=== PATIENT | male | born 1970 | race Caucasian/White ===

== ENCOUNTER 2024-06-01 02:29 | Inpatient (IN) | payer OTHER, SELFPAY ==
[2024-05-31 23:31] VITALS: BP 176/105
[2024-05-31 23:42] VITALS: BP 171/102
[2024-05-31 23:44] VITALS: BMI 39.5
[2024-06-01] VITALS (15 sets, daily range): BP systolic 119–161; BP diastolic 73–144; BMI 38.3
[2024-06-01 00:01] LABS: % Basophils 0.7 % (0-2); % Eosinophils 2.2 % (0-6); % Immature Granulocytes 0.3 % (0-0.5); % Lymphocytes 36.6 % (20.5-51.1); % Monocytes 12.3 % (1.7-9.3); % Neutrophils 47.9 % (42.2-75.2); Absolute Basophils 0.1 10^3/uL (0-0.2); Absolute Eosinophils 0.3 10^3/uL (0-0.7); Absolute Lymphocytes 4.3 10^3/uL (1.2-3.4); Absolute Monocytes 1.4 10^3/uL (0.1-0.6); Absolute Neutrophils 5.6 10^3/uL (1.4-6.5); Hematocrit 42.2 % (39.0-52.0); Hemoglobin 15.4 g/dL (13.0-18.0); Mean Corp Hgb Conc. 36.5 g/dL (33.0-37.0); Mean Corpuscular Hgb 29.3 pg (27.0-31.0); Mean Corpuscular Volume 80.4 fL (80.0-94.0); Mean Platelet Volume 9.7 fL (7.4-10.4); Nucleated Red Blood Cells % 0 % (-); Platelet Count 256 10^3/uL (130-400); Red Blood Cell Count 5.25 10^6/uL (4.70-6.10); Red Cell Dist. Width 12.6 % (11.5-14.5); White Blood Cell Count 11.7 10^3/uL (4.8-10.8)
[2024-06-01] MEDS: NITROSTAT (SUBLINGUAL) 0.4 MG SL (00:10)
[2024-06-01] MEDS: LOW STRENGTH ASPIRIN 324 MG PO (00:10)
[2024-06-01] MEDS: LOPRESSOR 5 MG IV (00:11)
[2024-06-01 00:13] LABS: APTT 27.6 Sec (23.4-35.0)
[2024-06-01 00:18] LABS: ALT (SGPT) 31 U/L (0-50); AST (SGOT) 82 U/L (17-59); Albumin 4.2 g/dl (3.5-5.0); Alkaline Phosphatase 48 U/L (38-126); Blood Urea Nitrogen 21 mg/dl (9-20); Calcium 9.5 mg/dl (8.4-10.2); Carbon Dioxide 26 mmol/L (22-30); Chloride 100 mmol/L (98-107); Estimated Creatinine Clearance > 125 ml/min; Glucose 280 mg/dl (70-99); Potassium 4.5 mmol/L (3.5-5.1); Sodium 139 mmol/L (135-145); Total Bilirubin 0.3 mg/dl (0.2-1.3); Total Protein 6.6 g/dl (6.3-8.2); eGFR > 60.00
--- NOTE | 2024-06-01 00:38 | EDRN ---
Patient was chest pain free after nitro, informed Dr. Ram, repeat EKG completed and gave to Dr. Ram
--- NOTE | 2024-06-01 00:44 | ED.GENMED ---
History of Present Illness
General
Chief Complaint: Chest Pain
Source: patient
Exam Limitations: none
Time Seen by Provider: 05/31/24 23:55
Nursing documentation reviewed up to this point in time: agreed with except (No prior history of NV. Patient does not have prior history of CAD, he has prior history of pericarditis as a teenager after episode of mononucleosis.)
History of Present Illness
History of Present Illness:
This is a 53-year-old obese gentleman who has history of [id number]-didexexzo diabetes, hypertension, anxiety as well as remote history of pericarditis as a teenager after suffering an episode of mononucleosis. He had been maintained on
medications for diabetes and hypertension but with significant weight loss was able to discontinue these medications several years ago, pre-COVID. He admits to moderate weight gain since then and admits to neglecting follow-up with his PCP since
prior to COVID-19.
He complains of several day history of intermittent chest pain, more persistent over the past day or 2 and worse tonight after lying down to bed associated with mild shortness of breath which prompted ED visit. No definitive aggravating nor
relieving factors. He denies palpitations, denies dizziness nor lightheadedness, denies diaphoresis, denies nausea nor vomiting. He does admit to moderate ongoing stress and thought that his chest pain was related to his anxiety as current chest
pain feels very similar to the chest pain he experienced with previous episodes of anxiety.
No recent travel, he denies leg pain or swelling.
Lifelong non-smoker. Rare alcohol use. Denies drug use.
He takes no medicines on a daily basis.
Family history of CAD in his father having suffered several MIs and in his 60s.
Patient states chest pain substernal, left parasternal region, nonradiating is currently mild perhaps 2 out of 10.
Past History
Past History
ED Past Medical History: HTN, NIDDM and Other (Obesity; history of pericarditis as a teenager after mononucleosis)
ED Past Surgical History: Orthopedic
Social History
Tobacco: Non-smoker
Alcohol: None
Drug: None
Personal:
Living: with family
Employment: Employed
Family History
Family History: CAD (Father had several MIs and in his 60s)
Phy Exam
Physical Exam
Physical Exam:
GENERAL: 53-year-old obese gentleman appears his stated age, awake and alert, pleasant, appears in no acute distress. is accompanying.
EYE: anicteric
NECK: Supple, nontender, no meningismus, no significant adenopathy.
ENT: oral mucosa is moist. No rhinorrhea.
CARDIAC: Regular rate and rhythm at 98. no murmur.
LUNGS: Clear breath sounds bilaterally, no acute respiratory distress, no wheezes/rales/rhonchi
ABDOMEN: Rotund, soft, nondistended, without focal tenderness, no r/g, no cvat. normoactive BS.
NEUROLOGICAL: Alert and oriented x3, no focal neuro deficits.
SKIN: Warm and dry, normal color, skin intact. No rash.
MUSCULOSKELETAL: No C/C/E. peripheral pulses are full and equal b/l. No palpable tenderness.
PSYCH: Normal and appropriate interaction.
Scores
Heart Score for Chest Pain Patients
STEMI patient?: No
History: Highly Suspicious
ECG: Significant ST-Depression
Age: >45 - <65 years
Risk Factors: >/= 3 Risk Factors or History of CAD
Troponin: >/= 3 x Normal Limit
Heart Score for Chest Pain Patients: 9
Heart Score Risk: 72.7 % MACE over next 6 weeks
Course
Orders/Labs/Results
Orders:
Orders
05/31/24 23:31
Electrocardiogram (*1) Urgent
Reason for Study: Chest Pain
EKG- Treatment ONCE
05/31/24 23:43
Complete Blood Count/With Diff Urgent
Comprehensive Metabolic Panel Urgent
NT-proBNP Urgent
Comment: ADD ON
Troponin I Urgent
05/31/24 23:55
PTT Urgent
06/01/24 00:05
Aspirin Chewable [Low Strength Aspirin] 324 mg PO NOW STA
Metoprolol [Lopressor] 5 mg IV NOW STA
Nitroglycerin Sublingual [Nitrostat (Sublingual)] 0.4 mg SL [id number] PRN
CR Chest Portable - 1 View Urgent
Comment:
Reason For Exam: CP
Reason Study Needs to be Portable: Patient Unstable
06/01/24 00:18
Electrocardiogram (*1) Urgent
Reason for Study: Chest Pain
EKG- Treatment ONCE
06/01/24 00:45
Add On- LAB Urgent
Tests Added?: BNP
Heparin 4,000 units IV NOW STA
Nursing to Place Non Medication Order As Directed
Physician Order: PTT 6 hours after initial start of Heparin infusion
Above order entered?: Yes
06/01/24 00:54
Nitroglycerin 100 mg/250 ml [Nitroglycerin Premix] 100 mg in 250 ml IV NOW
Initial dose in mcg/min, then titrate:: 5
Titrate to keep:: Chest Pain Free
Titrate by mcg/min:: 5 mcg/min, may increase by 10 mcg/min if dose > 20 mcg/min
Frequency of titrations (minutes):: every 3-5 minutes
Maximum dose in mcg/min:: 200
Begin to taper infusion when:: Remained at goal for 2hrs
Taper by mcg/min:: 5 mcg/min
Frequency of taper (minutes) if patient maintains goal:: 30
Taper to off?: Yes
If infusion off & no longer maintaining goal:: Contact Provider
06/01/24 01:15
Heparin 81549 Units/250 ml 25,000 units in 250 ml IV PER PROTOCOL
Weight to be used for heparin protocol in kilograms (kg):: 132
Protocol:: Cardiac Tx/Acute Coronary
PTT Goal Range to be used:: PTT 73 to 111 seconds
Order type:: Initial
INITIAL Infusion Dose (UNITS/KG/hr) & then follow protocol:: 12 units/kg/hr
Infusion Dose in UNITS/hr & then follow protocol (UNITS/hr):: 1,000
INFUSION RATE in mL/hr & then follow protocol (mL/hr):: 10
PTT less than or equal to 64 seconds:: Increase rate by 200 units/hr (+ 2 mL/hr)
PTT 64.1 to 72.9 seconds:: Increase rate by 100 units/hr (+ 1 mL/hr)
PTT 73 to 111 seconds:: Target Range. No change in rate.
PTT 111.1 to 130.9 seconds:: Decrease rate by 100 units/hr (- 1 mL/hr)
PTT 131 to 199.9 seconds:: HOLD for 1 hr. Then decrease rate by 200 units/hr (- 2 mL/hr)
PTT greater than or equal to 200 seconds:: HOLD for 2 hrs & Notify Provider. Then decrease by 200 units/hr (-
2 mL/hr)
Lab follow-up:: Each change, PTT q6h until 2 consecutive are therapeutic. Then PTT
daily.
06/01/24 01:36
Admit/Transfer Patient As Directed
Co-Sign Provider:
Level of Care: Inpatient admission
Assign to:: IVU
Physician / Group: [facility]
Diagnosis: ACS
Reason for Hospitalization: ACS
Expected length of stay greater than two midnights?: Yes
ELOS- Estimated Length of Stay in days: 3
I certify the patient meets the requirements for IP care: Yes
PRN Pain Medication Management As Directed
May give lesser potent ordered pain med per pt: Yes
preference::
Protocol:: Medication orders for pain may be administered in a
manner that supports deferring to patient preference
when the pt is:
- Requesting an ordered lesser potent pain medication.
Least to most potent pain medications are defined
as: acetaminophen < NSAID < tramadol < opioids
(morphine, oxycodone, hydromorphone).
- Requesting a lesser dose of the same medication IF
ORDERED.
- Requesting a less intrusive route of administration
if both routes are prescribed by the provider (PO <
IV).
06/01/24 01:37
Code Status As Directed
Resuscitation Status: Full Code
06/01/24 03:21
Acetaminophen [Tylenol] 650 mg PO Q4HPRN PRN
Dextrose 50%-Water [Dextrose 50% Syringe] 12.5 grams IV [id number] PRN
Glucagon [GlucaGen] 1 mg IM PRN PRN
Morphine Sulfate 2 mg IV Q4HPRN PRN
Nitroglycerin 100 mg/250 ml [Nitroglycerin Premix] 100 mg in 250 ml IV PER PROTOCOL
Currently infusing. Continue current dose and titrate:: Yes
Titrate to keep:: Chest Pain Free
Titrate by mcg/min:: 5 mcg/min, may increase by 10 mcg/min if dose > 20 mcg/min
Frequency of titrations (minutes):: every 3-5 minutes
Maximum dose in mcg/min:: 200
Begin to taper infusion when:: Remained at goal for 2hrs
Taper by mcg/min:: 5 mcg/min
Frequency of taper (minutes) if patient maintains goal:: 30
Taper to off?: Yes
If infusion off & no longer maintaining goal:: Contact Provider
06/01/24 03:21
CARDIOLOGY CONSULT Routine
Consulting Provider: Joao Carrillo
Was physician already notified: Yes
Reason for consult: ACS / STEMI
Heparin Protocol- PTT Orders As Directed
PTT per Heparin protocol: -Obtain CBC and baseline PTT - if not already collected.
-Obtain PTT 6 hours from start of infusion. Then, every 6 hours until 2 consecutive
PTT's are therapeutic. Then, PTT Daily.
-With each rate change, obtain PTT every 6 hours until 2 consecutive PTT's are
therapeutic. Then, PTT Daily.
Activity As Directed
Activity Level: Bedrest
Bedside Glucose Monitoring As Directed
Frequency: AC&HS
Additional Instructions:: Change to q6h if pt on TPN, tube feeding or not eating
EKG with chest pain [ECG as needed] As Directed
ECG as needed for:: Chest Pain
I/O [Intake/ Output] As Directed
Frequency: Per unit guidelines
Notify MD As Directed
Notify physician if: PTT is greater than or equal to 200.
Vital Signs As Directed
Frequency: Per unit guidelines
Oxygen Therapy [O2 Therapy] [RESP] Routine
Titrate/Wean O2 to maintain O2 sat greater than (%): 94
06/01/24 06:00
EKG [Electrocardiogram (*1)] IN AM
Reason for Study: Chest Pain
NPO
Allow oral meds: Yes
Allow clear liquids: Sips of Clears
06/01/24 07:29
Basic Metabolic Panel IN AM
Cardiovascular Evaluation IN AM
Glycohemoglobin (HgbA1c) IN AM
PTT Urgent
Troponin I Q6H
06/01/24 07:30
Insulin Aspart Corrective Low [Novolog Flexpen-Low Resistance] See Protocol SC AC
06/01/24 08:00
Aspirin Chewable [Low Strength Aspirin] 81 mg PO DAILY
06/01/24 18:00
Atorvastatin [Lipitor] 40 mg PO QPM
06/03/24 06:00
Complete Blood Count/No Diff Q2D
Comment: notify provider: Platelet count < 130,000 or decrease by 50% from baseline
06/05/24 06:00
Complete Blood Count/No Diff Q2D
Comment: notify provider: Platelet count < 130,000 or decrease by 50% from baseline
06/07/24 06:00
Complete Blood Count/No Diff Q2D
Comment: notify provider: Platelet count < 130,000 or decrease by 50% from baseline
06/09/24 06:00
Complete Blood Count/No Diff Q2D
Comment: notify provider: Platelet count < 130,000 or decrease by 50% from baseline
06/11/24 06:00
Complete Blood Count/No Diff Q2D
Comment: notify provider: Platelet count < 130,000 or decrease by 50% from baseline
06/13/24 06:00
Complete Blood Count/No Diff Q2D
Comment: notify provider: Platelet count < 130,000 or decrease by 50% from baseline
06/15/24 06:00
Complete Blood Count/No Diff Q2D
Comment: notify provider: Platelet count < 130,000 or decrease by 50% from baseline
06/17/24 06:00
Complete Blood Count/No Diff Q2D
Comment: notify provider: Platelet count < 130,000 or decrease by 50% from baseline
Abnormal Lab Results
05/31/24
23:43
WBC 11.7 H 10^3/uL
(4.8-10.8)
Absolute Lymphs (auto) 4.3 H 10^3/uL
(1.2-3.4)
Absolute Monos (auto) 1.4 H 10^3/uL
(0.1-0.6)
Monocytes % 12.3 H %
(1.7-9.3)
BUN 21 H mg/dl
(9-20)
Glucose 280 H mg/dl
(70-99)
AST 82 H U/L
(17-59)
Troponin I 7.580 H* ng/ml
05/31/24 23:43
05/31/24 23:43
Vital Signs
Initial and Last Documented VS:
Initial Vital Signs
Temp Pulse Resp BP Pulse Ox
98.2 F 102 20 176/105 99
05/31/24 23:31 05/31/24 23:31 05/31/24 23:31 05/31/24 23:31 05/31/24 23:31
Last Documented Vital Signs
Temp Pulse Resp BP Pulse Ox
98.6 F 92 20 127/87 97
06/01/24 06:57 06/01/24 07:05 06/01/24 06:57 06/01/24 07:05 06/01/24 07:05
MDM/Problems Addressed
Differential Diagnosis Includes:
Significant concern for acute coronary syndrome, other consideration is recurrent pericarditis, GERD, anxiety, PE.
EKG shows normal sinus rhythm, minimal ST segment elevation 1 and aVL with mild reciprocal changes 3 and aVF concerning for non-STEMI.
EKG changes are all new compared to previous EKG 2007.
Patient certainly has multiple risk factors for CAD, hypertension, diabetes, family history, obesity.
After 324 mg chewable aspirin and 1 sublingual nitroglycerin he is now chest pain-free and comfortable.
Moderate hypertension noted initially 160/90 with borderline tachycardia at this patient has been given an IV dose of Lopressor 5 mg as well.
Labs are pending. Will repeat EKG and plan for urgent cardiology consult.
Chronic conditions affecting care: DM, HTN and Other (Obesity)
*Radiology
Radiology exam reviewed: preliminary read by ED provider (Chest x-ray shows mild interstitial fullness concerning for mild CHF.)
*Pulse Oximetry
Patient hypoxic: no
*EKG
Interpreted by ED Provider?: Yes
Interpretation: abnormal
Comparison EKG: changes noted
Rate: normal
Rhythm: sinus
[place]: normal axis
Interval: normal interval
QRS Pattern: poor R-wave progression
Ischemia: ST elevation (Mild ST segment elevation 1 and aVL with reciprocal changes 3 and aVF concerning for subacute STEMI as symptoms have been ongoing for several days)
*[employer] Interpretation
Rate: normal
Interpretation: normal
Rhythm: sinus
*Critical Care Note
Total Time (30-74mins, 75-104mins- exclusive of procedures): 40
comment:
Critical care statement: A total of 40 minutes of critical care time was provided for this patient. This includes management of unstable vital signs, evaluation of the patient at bedside, reviewing the patient's pertinent medical records, discussion
with consultants, review of old EKGs and review of pertinent medical records. This time with separate from time utilized to perform the aforementioned documented procedures
Update Note
Update Note:
Repeat EKG shows marked improvement in EKG changes noted on initial EKG.
Case discussed with cardiology, Dr. Carrillo. EKGs reviewed.
Recommend initiation of nitro drip, IV heparin drip and request patient be admitted to hospitalist service.
Chest x-ray shows mild increased interstitial fullness concerning for an element of CHF. Patient denies shortness of breath, normal pulse ox and lungs are clear. Will check BNP.
ED Attending Note
-
Portions of this chart may have been created with voice recognition software.� Occasional wrong word or��sound alike� substitutions may have occurred due to the inherent limitations of voice recognition software.
Discharge Plan
Departure
Patient Disposition: Admit
Date of Disposition: 06/01/24
Time of Disposition: 01:00
Admit to doctor: [facility]
Presentation/result/management discussed w/ accepting MD/DO: Hospitalist
Condition: Serious
Discharge Problem:
ACS (acute coronary syndrome), Subacute STEMI
Interventions
Interventions:
*Risk Screen - Suicide Last Done: 05/31/24 23:31
*General Assessment Last Done: 05/31/24 23:44
*Neglect/Abuse Screening Last Done: 05/31/24 23:44
ED- Fall Risk Assessment Last Done: 06/01/24 00:02
*ED COVID-19 Vaccine History Last Done: 05/31/24 23:44
*Nursing Disposition Last Done: 06/01/24 03:14
ED- Cardiac Assessment Last Done: 06/01/24 00:02
Discharge Date and Time
Discharge Date/Time: 06/01/24 03:20
--- NOTE | 2024-06-01 00:55 | EDRN ---
Patient updated on labs and plan for admission, Dr. Ram at bedside talking with patient now
[2024-06-01 01:10] LABS: NT-proBNP 1180 pg/ml
[2024-06-01] MEDS: HEPARIN 4000 UNITS IV (01:22)
[2024-06-01] MEDS: HEPARIN 25000 UNITS/250 ML IV ×2 (01:23→21:19)
[2024-06-01] MEDS: NITROGLYCERIN PREMIX 250 IV (01:25)
--- NOTE | 2024-06-01 01:28 | EDRN ---
Dr. Jacobsen at bedside working on admitting patient at this time, patient remains pain free
--- NOTE | 2024-06-01 01:39 | HPS.HSE ---
Family Physician
-
Family Physician: Viola Fuentes
Chief Complaint
-
Chest pain
History of Present Illness
Patient is a 53y M with PMH significant for DM-II and history of pericarditis who presents to ED complaining of chest pain. Patient states that he has been under a great deal of stress lately at work. He reports development of substernal chest
pain / tightness beginning on Sunday of this week. His symptoms have been intermittent over the past few days. He reports no radiation of the pain, diaphoresis, dyspnea, nausea, etc. He felt that his symptoms were 'anxiety attacks'. This
evening, patient had more intense chest tightness and noted associated shortness of breath. This prompted him to present to the ED for further evaluation.
On initial evaluation in the ED, EKG showed ST elevation in I, aVL and reciprocal changes in III and aVF. Patient was treated with NTG and his discomfort resolved. Repeat EKG appeared improved as well.
Patient is currently resting comfortably and denies any chest pain, dyspnea, etc.
Medical History
Past Medical History
Past Medical History: Reports Other
Additional Past Medical History:
DM-II
Obesity
Infectious Pericarditis ([place])
Past Surgical History: Reports Other
Additional Past Surgical History:
R Knee Arthroscopy
Social History
Tobacco: Non-smoker
Alcohol: Occasional (Rare)
Drug: None
Family History
Family History: Other (Father: [place]@60yo Sister: Breast / Ovarian CA)
Allergies / Home Medications
Allergies reflects when Allergies were last updated in [facility].
Home Medications with original date entered in [facility]
Allergy/Medication List:
Allergies
Allergy/AdvReac Type Severity Reaction Status Date / Time
No Known Allergies Allergy Unverified 05/31/24 23:40
Home Medications
No Meds [No Current Medications] 06/01/24
Review of Systems
-
History Source: Patient
A 12 point ROS was completed and negative except as noted: Yes
Constitutional: Denies Fever or Chills
EENT: Denies Sore Throat
Respiratory: Reports Trouble Breathing; Denies Cough
Cardiac: Reports Chest Pain; Denies Diaphoresis, Palpitations or Syncope
Abdomen/GI: Denies Abdominal Pain, Nausea, Vomiting or Diarrhea
: Denies Dysuria or Frequency
Musculoskeletal: Denies Joint Pain or Edema
Neurological: Denies Dizzy or Headache
Psych: Reports Anxiety; Denies Depression
Physical Exam
Vital Signs
Vital Signs
Temp Pulse Resp BP Pulse Ox
98.2 F 83 16 128/79 98
05/31/24 23:31 06/01/24 00:30 06/01/24 00:30 06/01/24 00:30 06/01/24 00:30
Physical Exam
General: Other (53y M in no acute distress.)
HEENT: Moist mucous membranes and PERRLA
Respiratory: Clear; No Wheezes, Rales or Rhonchi
Cardiac: S1/S2 and Regular Rhythm; No Murmur
GI: Soft, Non Tender, Non Distended and Normal Bowel Sounds
Musculoskeletal: No Clubbing, No Cyanosis and No Edema
Neuro: AO x 3
Laboratory Results
-
05/31/24 23:43
05/31/24 23:43
Laboratory Results
APTT 27.6 Sec (23.4-35.0) 05/31/24 23:55
Total Bilirubin 0.3 mg/dl (0.2-1.3) 05/31/24 23:43
AST 82 U/L (17-59) H 05/31/24 23:43
ALT 31 U/L (0-50) 05/31/24 23:43
Alkaline Phosphatase 48 U/L (38-126) 05/31/24 23:43
Troponin I 7.580 ng/ml H* 05/31/24 23:43
Impression/Plan
-
A/P: Patient is a 53y M with PMH significant for DM-II and pericarditis who presents to ED complaining of chest pain.
ACS
- Admit to IVU for further evaluation and treatment.
- Initial symptoms, EKG, troponin c/w STEMI in lateral leads. Pain and EKG changes responded to NTG.
- Currently pain-free and EKG improved from prior.
- Continue IV NTG infusion. IV Heparin infusion.
- ASA daily.
- Follow for any new / recurrent symptoms.
- Cardiology consultation and ischemic evaluation.
DM-II
- Patient previously on medications, but lost significant weight with lifestyle changes and was able to discontinue these.
- He admits that he has since regained a fair amount of weight and has not followed up with medical care.
- Glucose today is 280 on random labs.
- Follow glucose and cover with SSI as needed.
- Update A1C.
- Adjust meds prior to discharge for glycemic control.
Obesity due to excess calories
- Affects all aspects of care.
- Encourage healthy diet / increased exercise with goal of weight loss.
DVT Prophylaxis: On IV Heparin
Code Status: Full
--- NOTE | 2024-06-01 04:27 | PTCARENOTE ---
Pt admit to IVU ~0310. HR SR. Heparin infusing at 1000u/hr. Nitro infusing at 5mcg/min. Pt denies any CP. Pt's significant other at bedside. Oriented to hospital and unit. Pt belongings with pt. CAD booklet given to pt, reviewed with pt. Pt updated
on plan of care, pt verbalizes understanding.
[2024-06-01 07:08] LABS: Glucose - Point of Care 215 mg/dl (70-99)
[2024-06-01 07:50] LABS: APTT 37.9 Sec (23.4-35.0)
--- NOTE | 2024-06-01 07:51 | W.PN.HOSP.TC ---
Today's Communication/Plan
-
F/U cardiology recs
Assessment / Plan
Assessment / Plan
Mr. Isacc Ruiz is a 53 yo man with hx DM, pericarditis who presents to the ER with complaint of chest pain with initial EKG showing STEMI in lateral leads, resolved with nitro.
ACS
- Admitted to IVU for further evaluation and treatment.
- Initial symptoms, EKG, troponin c/w STEMI in lateral leads. Pain and EKG changes responded to NTG.
- Currently pain-free and EKG improved from prior.
- Continue IV NTG infusion. IV Heparin infusion.
- ASA daily.
- Cardiology consultation and ischemic evaluation.
DM-II
- Patient previously on medications, but lost significant weight with lifestyle changes and was able to discontinue these.
- He admits that he has since regained a fair amount of weight and has not followed up with medical care.
- Glucose today is 280 on random labs.
- Follow glucose and cover with SSI as needed.
- Update A1C.
- Adjust meds prior to discharge for glycemic control.- patient states he hasn't tolerated metformin in past
Obesity due to excess calories
- Affects all aspects of care.
- Encourage healthy diet / increased exercise with goal of weight loss.
DVT Prophylaxis: On IV Heparin
Code Status: Full
Anticipated Discharge: 24 - 48 hours
Subjective/Interval History
-
Date of Service: June 01, 2024
mild muscle soreness no significant chest discomfort currently and no shortness of breath
Objective Data
-
Labs:
Laboratory Results
05/31/24 05/31/24 06/01/24
23:43 23:55 07:29
WBC 11.7 H
Hgb 15.4
Hct 42.2
Plt Count 256
APTT 27.6 Pending
Sodium 139 Pending
Potassium 4.5 Pending
Chloride 100 Pending
Carbon Dioxide 26 Pending
BUN 21 H Pending
Creatinine 0.8 Pending
Glucose 280 H Pending
Calcium 9.5 Pending
Total Bilirubin 0.3
AST 82 H
ALT 31
Alkaline Phosphatase 48
Vital Signs:
Vital Signs
Temp Pulse Resp BP Pulse Ox
98.6 F 92 20 127/87 97
06/01/24 06:57 06/01/24 07:05 06/01/24 06:57 06/01/24 07:05 06/01/24 07:05
Review of Systems
-
History Source: Patient
All other systems: Reviewed and negative
Physical Exam
-
General: Well Developed and No Apparent Distress
HEENT: PERRLA
Respiratory: Clear to Auscultation; Negative Wheezes
Cardiac: Regular Rhythm and S1/S2
GI: Soft and Nontender
Musculoskeletal: No Edema
Skin: Warm and Dry; Negative Rash
Neuro: AO x 3
Psych: Calm
Data Reviewed
-
Diagnostic Radiology: Report Reviewed by me
Labs: Labs Reviewed by me
[2024-06-01] MEDS: LOW STRENGTH ASPIRIN 81 MG PO (07:54)
[2024-06-01 08:04] LABS: Blood Urea Nitrogen 16 mg/dl (9-20); Calcium 9.3 mg/dl (8.4-10.2); Carbon Dioxide 26 mmol/L (22-30); Chloride 104 mmol/L (98-107); Estimated Creatinine Clearance > 125 ml/min; Glucose 229 mg/dl (70-99); HDL Cholesterol 49 mg/dl; LDL Cholesterol, Calculated 120 mg/dl; Potassium 4.4 mmol/L (3.5-5.1); Sodium 140 mmol/L (135-145); Total Cholesterol 198 mg/dl (50-199); Triglyceride 149 mg/dl (10-149); Very Low Density Lipoprotein 29 mg/dl (0-30); eGFR > 60.00
--- NOTE | 2024-06-01 08:44 | PTCARENOTE ---
The patient is aaox3, vital signs are stable. NSR is noted on the monitor. He states that he is not having 'chest pain' but rather he 'it feels like a muscle strain in my left chest.' 'As if I just got done working out.' His heparin gtt is running
at 1000 units/hr and his nitro gtt is running at 5 mcg/min. Plan of care reviewed with the patient and expected upcoming tests and procedures.
[2024-06-01] MEDS: TOPROL XL 25 MG PO ×2 (09:29→20:34)
[2024-06-01] MEDS: BRILINTA 180 MG PO (09:31)
--- NOTE | 2024-06-01 09:57 | CON.CAR ---
Consultation
Consultation Request
Date/Time Consultation Requested: 06/01/24, 7am
Date/Time Consultation Performed: 06/01/24, 8am
Requesting Provider: Lory
Performing Provider: Lorena
Reason for Consultation: chest pain
Medical History
-
Chief Complaint: chest pain
History of Present Illness:
53 yo male with PMH of DM (not on meds), obesity, FH CAD presented to ED with chest pain. Chest pain started Wed intermittently. Still went to work throughout week. Then last night was worse, so presented to ED. Initially, there was concern for
lateral ST elevation, but these changes and the chest pain resolved with sublingual nitro.
He is now chest pain free.
Past Medical History
Past Medical History: NIDDM and Other (obesity, prior viral pericarditis)
Past Surgical History: Orthopedic
Social History
Tobacco: Non-Smoker
Family History
Family History: CAD (father)
Allergies / Home Medications
Allergy/AdvReac Type Severity Reaction Status Date / Time
No Known Allergies Allergy Unverified 05/31/24 23:40
�Medication �Instructions �Recorded �Confirmed �Type
No Meds [No Current Medications] 06/01/24 06/01/24 History
Review of Systems
-
History Source: Patient
All other systems: Negative unless noted
Cardiac: Chest Pain
Physical Exam
Vital Signs
Temp Pulse Resp BP Pulse Ox
98.6 F 92 20 127/87 97
06/01/24 06:57 06/01/24 07:05 06/01/24 06:57 06/01/24 07:05 06/01/24 07:05
Lab Results
05/31/24 23:43
06/01/24 07:29
Troponin I Cancelled 06/01/24 15:21
Mbe-R-Chdnxjagxxh Pept 1180 pg/ml 05/31/24 23:43
Physical Exam
General: Well Developed and Well Nourished
HEENT: Anicteric
Respiratory: Clear and Non Labored Respirations
Cardiac: S1/S2 (normal), Regular Rhythm, Murmur (none) and JVD (none)
Musculoskeletal: No Clubbing, No Cyanosis and No Edema
Skin: Warm and Dry
Neuro: AO x 3
Psych: Calm
Impression / Plan
-
53 yo male with PMH of DM (not on meds), obesity, FH CAD presented to ED with chest pain. Chest pain started Wed intermittently. Still went to work throughout week. Then last night was worse, so presented to ED. Initially, there was concern for
lateral ST elevation, but these changes and the chest pain resolved with sublingual nitro.
#ACS
-as long as remains chest pain free, will proceed to cath and echo in AM
-ASA, brilinta, heparin drip, nitro drip, beta mckenna, statin
# Elevated LDL
-new start atorvastatin 40mg
# h/o DM
-he reports he was able to come of off meds with weight loss
-A1c sent
Data Reviewed
-
EKG: Tracing Personally Visualized and interpreted (SR, initial lateral ST elevation, then resolved)
Labs: Labs Reviewed by me
[2024-06-01 10:24] LABS: Glucose - Point of Care 207 mg/dl (70-99)
[2024-06-01] MEDS: NOVOLOG FLEXPEN-LOW RESISTANCE 2 UNITS SC ×2 (10:24→17:26)
[2024-06-01] MEDS: TYLENOL 650 MG PO ×2 (10:31→15:09)
[2024-06-01] MEDS: OCEAN, SALINE MIST 1 SPRAYS NASAL (12:23)
[2024-06-01 12:58] LABS: Glycohemoglobin (HgbA1c) 7.7 % (4.0-5.6)
[2024-06-01 13:06] LABS: Glucose - Point of Care 247 mg/dl (70-99)
[2024-06-01] MEDS: NOVOLOG FLEXPEN-LOW RESISTANCE 3 UNITS SC (13:06)
[2024-06-01 14:17] LABS: APTT 37.9 Sec (23.4-35.0)
[2024-06-01 17:14] LABS: Glucose - Point of Care 206 mg/dl (70-99)
[2024-06-01] MEDS: LIPITOR 40 MG PO (17:27)
[2024-06-01 22:30] LABS: Glucose - Point of Care 211 mg/dl (70-99)
[2024-06-02] VITALS (12 sets, daily range): BP systolic 99–125; BP diastolic 70–83; BMI 36.9
--- NOTE | 2024-06-02 02:38 | PTCARENOTE ---
Pt received start of shift, HR SR. Heparin currently infusing at 1600u/hr. Nitro infusing at 5 mcg/min. Reinforced CAD teaching w/ pt and updated pt on plan of care. Pt states understanding. Pt denies any CP/chest pressure/chest tightness or SOB.
Informed to notify RN if any changes, call hermosillo within reach.
[2024-06-02] MEDS: TYLENOL 650 MG PO (03:08)
--- NOTE | 2024-06-02 03:19 | PTCARENOTE ---
Pt w/ mild GUARDADO 4/10 pain. PRN tylenol administered - see MAR
[2024-06-02 03:28] LABS: Hematocrit 42.1 % (39.0-52.0); Hemoglobin 15.2 g/dL (13.0-18.0); Mean Corp Hgb Conc. 36.1 g/dL (33.0-37.0); Mean Corpuscular Hgb 30.2 pg (27.0-31.0); Mean Corpuscular Volume 83.5 fL (80.0-94.0); Mean Platelet Volume 9.6 fL (7.4-10.4); Platelet Count 237 10^3/uL (130-400); Red Blood Cell Count 5.04 10^6/uL (4.70-6.10); Red Cell Dist. Width 12.3 % (11.5-14.5); White Blood Cell Count 16.1 10^3/uL (4.8-10.8)
[2024-06-02 03:52] LABS: Blood Urea Nitrogen 12 mg/dl (9-20); Calcium 9.6 mg/dl (8.4-10.2); Carbon Dioxide 31 mmol/L (22-30); Chloride 99 mmol/L (98-107); Estimated Creatinine Clearance > 125 ml/min; Glucose 229 mg/dl (70-99); Magnesium 1.8 mg/dl (1.6-2.3); Potassium 4.4 mmol/L (3.5-5.1); Sodium 138 mmol/L (135-145); eGFR > 60.00
[2024-06-02] MEDS: BRILINTA 90 MG PO ×2 (08:06→20:01)
[2024-06-02] MEDS: TOPROL XL 25 MG PO ×2 (08:07→20:00)
[2024-06-02] MEDS: LOW STRENGTH ASPIRIN 81 MG PO (08:07)
[2024-06-02 08:25] LABS: Glucose - Point of Care 209 mg/dl (70-99)
[2024-06-02] MEDS: NOVOLOG FLEXPEN-LOW RESISTANCE 2 UNITS SC (08:28)
--- NOTE | 2024-06-02 09:44 | ITS.CL.PN ---
Residential [facility] - Procedure Note
Procedure
Procedure Note:
CARDIAC CATHETERIZATION REPORT
Date of Procedure: 06/02/2024
Referring: Dr. Joao Carrillo
INDICATION: acute coronary syndrome, myocardial infarction
PROCEDURE:
1. Left heart catheterization
2. Coronary angiography
ACCESS:
6 Jamaican right radial artery
CATHETERS:
1. 6 Jamaican JR4
2. 6 Jamaican JL3.5
3. 6 Jamaican JL4 (best fit)
HEMODYNAMIC DATA
LV 109/15 (EDP 24) mmHg
AO 115/80 (mean 95) mmHg
CORONARY ANGIOGRAPHY
Dominance: right
LM: large, normal
LAD: gives rise to a large D1 and large S1 before being totally occluded in the mid-vessel. There are faint R-R and L-R collaterals supplying the mid-distal vessel.
LCx: moderate caliber vessel giving rise to a small OM1, moderate-caliber OM2, and small OM3. There is diffuse mild disease in OM1 and OM2 and diffuse moderate to severe disease in OM3.
RCA: large vessel giving rise to a medium caliber RPDA and large RPL branch. There is diffuse mild disease in the RCA. The PDA has an ostial 80% stenosis and serial moderate stenoses distally. The RPLV has a 70% stenosis in the mid-vessel and
diffuse mild disease.
Closure Device: TR band
Radiation (mGy): 619.68
DAP (cm2.Gy): 36.61
Fluoroscopy time (minutes): 4.0
CONCLUSIONS
1. Two vessel obstructive coronary artery disease in a right dominant system. The infarct related artery is the mid-LAD which is totally occluded with developing collaterals. Given that the patient's symptoms started at least 5 days ago and have now
completely resolved and troponin peak was only 14, also suggesting chronicity, he is unlikely to experience myocardial salvage from PCI and thus revascularization was deferred.
2. Elevated LV filling pressure without aortic stenosis.
RECOMMENDATIONS:
1. Expectant management after cardiac catheterization via right radial approach.
2. Limited weight bearing on the right wrist for one week.
3. Echocardiogram with appropriate GDMT pending LVEF.
4. Continue beta mckenna for goal HR 60.
4. DAPT with ASA/Ticagrelor for at least 1 year given ACS presentation and factors for high bleeding risk.
5. High intensity statin with goal LDL<55. Check Lp(a).
6. Cardiac rehab.
7. Should patient develop ischemic symptoms, revascularization should be considered with discussion regarding surgical revascularization given prox-LAD involvement in a young diabetic.
Copy to: Dr. Viola Fuentes (PCP)
Signed: Srinivas Zimmerman MD, PhD
--- NOTE | 2024-06-02 09:45 | W.PN.HOSP.TC ---
Today's Communication/Plan
-
Anti-ischemic regimen.
Assessment / Plan
Assessment / Plan
Physical exam:
General: Well Developed, Well Nourished and No Apparent Distress
HEENT: Normocephalic, Atraumatic and Moist Mucous Membranes
Respiratory: Clear to Auscultation; Negative Wheezes, Rales or Rhonchi
Cardiac: Regular Rhythm and S1/S2
GI: Soft, Nontender and Nondistended
Musculoskeletal: No Clubbing, No Cyanosis and No Edema
Neuro: Awake, Alert and Oriented
Psych: Calm
A/P:
ACS--> NSTEMI
-Plan as below:
-Dual antiplatelet therapy, beta-blockers, high intensity statins
- Cardiology consultation and ischemic evaluation.
-Cardiac cath today revealed obstructive CAD but not benefiting from intervention. Medical management indicated but if ischemic symptoms ongoing consideration for surgical revascularization.
DM-II
- Patient previously on medications, but lost significant weight with lifestyle changes and was able to discontinue these.
- He admits that he has since regained a fair amount of weight and has not followed up with medical care.
- Follow glucose and cover with SSI as needed.
- Update A1C. 7.7
- Adjust meds prior to discharge for glycemic control.- patient states he hasn't tolerated metformin in past
Obesity due to excess calories
- Affects all aspects of care.
- Encourage healthy diet / increased exercise with goal of weight loss.
DVT Prophylaxis: Switch heparin drip to SCD and later on Lovenox if no surgery
Code Status: Full
Total time spent on today's encounter was 52 minutes which included time spent in counseling the patient/family regarding diagnosis and treatment plan as listed above, goals of care, and symptom management. Case was discussed with nursing staff,
specialists, and care coordinators/case management. All labs and imaging personally reviewed by me. Remainder the time spent in detailed review of previous records, lab data, imaging, and other medical provider documentation.
Anticipated Discharge: 24 - 48 hours
Subjective/Interval History
-
Date of Service: June 02, 2024
Patient denies chest pain or shortness of breath today.
Objective Data
-
Labs:
Laboratory Results
06/02/24 06/02/24
03:15 09:50
WBC 16.1 H
Hgb 15.2
Hct 42.1
Plt Count 237
APTT 54.0 H Pending
Sodium 138
Potassium 4.4
Chloride 99
Carbon Dioxide 31 H
BUN 12
Creatinine 0.7
Glucose 229 H
Calcium 9.6
Vital Signs:
Vital Signs
Temp Pulse Resp BP Pulse Ox
99.8 F 95 16 119/77 97
06/02/24 03:07 06/02/24 03:00 06/02/24 03:07 06/01/24 22:30 06/02/24 03:07
I&O
06/01/24 06/02/24 06/03/24
06:59 06:59 06:59
Intake Total 480 / 480
Balance 480 / 480
--- NOTE | 2024-06-02 11:43 | CM ---
Pricing on Brilinta through the patient's prescription plan is $437, the patient has a hospital and prescription deductible for $3200. The patient does have commercial insurance, so he qualifies for the copay card. I will place a free 30 day along
with the $5 copay card in his red discharge folder. [facility] does have it in stock.
[2024-06-02 12:12] LABS: Glucose - Point of Care 194 mg/dl (70-99)
[2024-06-02] MEDS: NOVOLOG FLEXPEN-LOW RESISTANCE 1 UNITS SC ×2 (12:14→18:07)
[2024-06-02] MEDS: NSS 1000 IV (13:00)
--- NOTE | 2024-06-02 13:26 | CM ---
Chart reviewed. Patient is independent of ADLS, lives with his SO in a 2nd floor apartment, [address], 0 DME. Plan is for the patient to return home. CM to follow
--- NOTE | 2024-06-02 15:28 | CARDSERVLU ---
Echocardiogram with Lumason completed after protocol screening completed. Allergies verified.
Patent IV site: _L arm____
IV site flushed with 0.9% NaCl pre and post administration.
Diluted bolus method utilized to enhance visualization of ventricular traylor.
Total volume given: __5__ mL
Patient tolerated all procedures well without complications.
--- NOTE | 2024-06-02 17:59 | PTCARENOTE ---
Rec'd Pt post cardiac cath, A,A+O x3, denies pain. R radial band intact and dry. VSS.
--- NOTE | 2024-06-02 18:01 | PTCARENOTE ---
Pt OOB ambulating in room, kevin well, denies pain.
[2024-06-02 18:06] LABS: Glucose - Point of Care 194 mg/dl (70-99)
[2024-06-02] MEDS: LIPITOR 40 MG PO (18:07)
[2024-06-02 23:35] LABS: Glucose - Point of Care 199 mg/dl (70-99)
[2024-06-03] VITALS (7 sets, daily range): BP systolic 100–128; BP diastolic 58–88; BMI 36.8
--- NOTE | 2024-06-03 01:22 | PTCARENOTE ---
Assumed care of pt at 2245. Pt resting comfortably in bed. R radial site CDI, soft - no hematoma. Updated pt on plan of care, pt states understanding. Pt expressed strong desire to not be woken up before 5am. Explained to pt the unit policies, but
would try to accommodate as best as possible. Pt denies any CP or SOB.
[2024-06-03 05:37] LABS: Hematocrit 37.6 % (39.0-52.0); Hemoglobin 13.5 g/dL (13.0-18.0); Mean Corp Hgb Conc. 35.9 g/dL (33.0-37.0); Mean Corpuscular Hgb 29.3 pg (27.0-31.0); Mean Corpuscular Volume 81.6 fL (80.0-94.0); Mean Platelet Volume 10.1 fL (7.4-10.4); Platelet Count 220 10^3/uL (130-400); Red Blood Cell Count 4.61 10^6/uL (4.70-6.10); Red Cell Dist. Width 12.4 % (11.5-14.5); White Blood Cell Count 12.4 10^3/uL (4.8-10.8)
[2024-06-03 05:59] LABS: Blood Urea Nitrogen 13 mg/dl (9-20); Calcium 9.2 mg/dl (8.4-10.2); Carbon Dioxide 28 mmol/L (22-30); Chloride 101 mmol/L (98-107); Estimated Creatinine Clearance > 125 ml/min; Glucose 209 mg/dl (70-99); Potassium 4.4 mmol/L (3.5-5.1); Sodium 138 mmol/L (135-145); eGFR > 60.00
--- NOTE | 2024-06-03 08:25 | W.PN.HOSP.TC ---
Today's Communication/Plan
-
Adjustment cardiac medications.
Assessment / Plan
Assessment / Plan
Physical exam:
General: Well Developed, Well Nourished and No Apparent Distress
HEENT: Normocephalic, Atraumatic and Moist Mucous Membranes
Respiratory: Clear to Auscultation; Negative Wheezes, Rales or Rhonchi
Cardiac: Regular Rhythm and S1/S2
GI: Soft, Nontender and Nondistended
Musculoskeletal: No Clubbing, No Cyanosis and No Edema
Neuro: Awake, Alert and Oriented
Psych: Calm
A/P:
ACS--> NSTEMI
-Plan as below:
-Dual antiplatelet therapy, beta-blockers, high intensity statins
- Cardiology consultation and ischemic evaluation.
-Cardiac cath today revealed obstructive CAD but not benefiting from intervention. Medical management indicated but if ischemic symptoms ongoing consideration for surgical revascularization.
-Discussed with cardiology who recommends inpatient monitoring for 24 hours and possible discharge tomorrow. Medications adjustment introduced today.
Acute systolic congestive heart failure
-GDMT
-Recheck renal function in a.m. electrolytes
Hyperlipidemia
-Checking lipoprotein a
-Starting statins
DM-II
- Patient previously on medications, but lost significant weight with lifestyle changes and was able to discontinue these.
- He admits that he has since regained a fair amount of weight and has not followed up with medical care.
- Follow glucose and cover with SSI as needed.
- Update A1C. 7.7
- Adjust meds prior to discharge for glycemic control.- patient states he hasn't tolerated metformin in past
-Diabetic ENTOMOLOGY TEACHER consulted
Obesity due to excess calories
- Affects all aspects of care.
- Encourage healthy diet / increased exercise with goal of weight loss.
DVT Prophylaxis: Switch heparin drip to SCD and later on Lovenox if no surgery
Code Status: Full
Anticipated Discharge: Within 24 hours
Subjective/Interval History
-
Date of Service: June 03, 2024
Patient denies any chest pain or shortness of breath today
Objective Data
-
Labs:
Laboratory Results
06/03/24
05:22
WBC 12.4 H
Hgb 13.5
Hct 37.6 L
Plt Count 220
Sodium 138
Potassium 4.4
Chloride 101
Carbon Dioxide 28
BUN 13
Creatinine 0.7
Glucose 209 H
Calcium 9.2
Vital Signs:
Vital Signs
Temp Pulse Resp BP Pulse Ox
98.5 F 96 14 128/85 99
06/03/24 07:52 06/03/24 07:51 06/03/24 07:52 06/03/24 07:51 06/03/24 07:52
I&O
06/02/24 06/03/24 06/04/24
06:59 06:59 06:59
Intake Total 480 / 480 555 / 555
Balance 480 / 480 555 / 555
--- NOTE | 2024-06-03 08:29 | W.PN.CD ---
Today's Communication / Plan
-
GDMT titration, assess symptoms with ambulation
Impression / Plan
-
53 yo male with PMH of DM (not on meds), obesity, FH CAD presented to ED with several days of chest pain, found to have ST elevations that improved with medication. Cath performed yesterday demonstrated 100% occluded LAD and RPDA/RPL disease.
Revascularization was deferred given he was >72 hours form initial symptoms and was symptom free, suggesting completion of his infarct. TTE demonstrates LAD RWMA and reduced EF 35%.
#late presenting [place] with 100% occluded mid-LAD
-patient chest pain free for >1 day prior to cath, CP started ~5 days prior to cath, collaterals visualized to occluded territory; all suggestive of completed infarct.
-revascularization benefit in this setting is for symptom improvement, not MACE prevention; thus, if patient remains symptom free will not pursue revascularization of the LAD
-cont. ASA, brilinta, beta mckenna, statin
#acute systolic heart failure (ischemic) with reduced ejection fraction
-starting dapa and low dose entresto today
-cont. metop succinate, inc. to 50 BID today
-monitor Cr/BP/HR
# Elevated LDL (120)
-check Lp(a)
-goal LDL<55
-new start atorvastatin 40mg
# h/o DM
-he reports he was able to come of off meds with weight loss
-A1c now 7.7
-may require more than dapa to achieve goal A1c<7
Subjective: feels 'great' no symptoms with ambulation
TTE 06/02/24
Moderately reduced left ventricular systolic function.
Estimated LV ejection fraction is 35-40% Normal diastolic function.
Apical, distal septal, distal anteroseptal and distal anterior wall motion
abnormalities.
Trace mitral regurgitation.
No prior study available for comparison
Physical Exam
Vital Signs/Labs
Vital Signs
Temp Pulse Resp BP Pulse Ox
36.9 C 96 14 128/85 99
06/03/24 07:52 06/03/24 07:51 06/03/24 07:52 06/03/24 07:51 06/03/24 07:52
06/02/24 06/03/24 06/04/24
06:59 06:59 06:59
Actual Weight 123.4 kg 122.9 kg
06/03/24 05:22
06/03/24 05:22
APTT Cancelled 06/02/24 09:50
Magnesium 1.8 mg/dl (1.6-2.3) 06/02/24 03:15
Triglycerides 149 mg/dl (10-149) 06/01/24 07:29
LDL Cholesterol, Calc 120 mg/dl 06/01/24 07:29
VLDL Cholesterol, Calc 29 mg/dl (0-30) 06/01/24 07:29
HDL Cholesterol 49 mg/dl 06/01/24 07:29
05/31/24
23:43
Ims-D-Ffkkbyzbjfq Pept 1180
LAB Results
05/31/24 06/01/24 06/01/24
23:43 07:29 09:21
Troponin I 7.580 H* 10.600 H* D Cancelled
06/01/24 06/01/24 06/01/24
13:59 15:21 20:45
Troponin I 11.300 H* Cancelled 14.900 H* D
06/02/24 06/02/24
08:40 14:18
Troponin I 14.900 H* 13.700 H*
Physical Exam
Constitutional: No acute distress and Comfortable
Cardiovascular: Rhythm & rate is regular, Pedal edema is absent, Systolic murmur absent and Diastolic murmur absent
Respiratory: Respiratory effort normal and Lungs clear to auscul.
Neuro/Psych: Alert and Oriented
Data Reviewed
-
Date of Service: June 03, 2024
Medical Decision Making: Reviewed Test Results and Tests Ordered
EKG: Tracing Personally Visualized and interpreted and Report Reviewed by me
Echo: Report Reviewed by me
Labs: Labs Reviewed by me and Labs Ordered by me
[2024-06-03 08:37] LABS: Glucose - Point of Care 223 mg/dl (70-99)
[2024-06-03] MEDS: BRILINTA 90 MG PO ×2 (08:40→19:38)
[2024-06-03] MEDS: LOW STRENGTH ASPIRIN 81 MG PO (08:41)
[2024-06-03] MEDS: FARXIGA 10 MG PO (08:41)
[2024-06-03] MEDS: ENTRESTO 24 MG/26 MG 1 TAB PO ×2 (08:42→19:38)
[2024-06-03] MEDS: NOVOLOG FLEXPEN-LOW RESISTANCE 2 UNITS SC (08:43)
[2024-06-03] MEDS: TOPROL XL PO (08:54)
[2024-06-03] MEDS: TOPROL XL 50 MG PO ×2 (09:13→19:38)
--- NOTE | 2024-06-03 10:55 | CM ---
Chart reviewed. Patient is independent of ADLS, lives with his significant other in a 2nd floor apartment, [address], 0 DME. Plan is for the patient to return home. CM to follow
[2024-06-03 11:26] LABS: Glucose - Point of Care 164 mg/dl (70-99)
[2024-06-03] MEDS: NOVOLOG FLEXPEN-LOW RESISTANCE 1 UNITS SC (11:27)
[2024-06-03] MEDS: GLUCOTROL 5 MG PO (11:34)
--- NOTE | 2024-06-03 13:14 | PN.DE.MGMTRT ---
Insulin Management
- -
06/03/2024 Diabetes Management Consult
Patient admitted 05/31 with chest pain, [place], chf. PMH HTN, diabetes, pericarditis as a teen. A1C on admission 7.7%, cr .7, eGFR > 60. s/p cardiac cath 06/02. Prior to admission was taking no medication for diabetes. States he took meds up until 5
years ago. He lost weight and was able to stop oral meds. He states he does have a working glucose monitor.
Patient is awake alert and oriented OOB in chair working on his computer.
Patient states he could not tolerate metformin in the past.
Since admission glucose has ranged from 164 to 247.
Farxiga 10 mg daily has been started. Patient is agreeable to start glipizide 5 mg daily (he was on glipizide before 2018). Will follow
Diabetes History
- -
Type of Diabetes: 2
Pre-Admission Diabetes Regimen
06/03/24
05:22
Creatinine 0.7
Lab Results
Hemoglobin A1c 7.7 % (4.0-5.6) H 06/01/24 07:29
Insulin Pump Settings
IP Diabetes Regimen
06/02/24 06/02/24 06/03/24
18:05 23:34 05:22
Glucose 209 H
POC Glucose 194 H 199 H
06/03/24 06/03/24
08:36 11:25
Glucose
POC Glucose 223 H 164 H
Meal type: Breakfast
Amount consumed: 100%
Patient Education
[2024-06-03 14:07] LABS: Glucose - Point of Care 153 mg/dl (70-99)
[2024-06-03 17:37] LABS: Glucose - Point of Care 113 mg/dl (70-99)
[2024-06-03] MEDS: LIPITOR 40 MG PO (17:37)
[2024-06-03] MEDS: NOVOLOG FLEXPEN-LOW RESISTANCE SC (17:37)
[2024-06-03 21:27] LABS: Glucose - Point of Care 147 mg/dl (70-99)
[2024-06-04 04:19] VITALS: BP 111/70
[2024-06-04 04:53] LABS: Hematocrit 40.3 % (39.0-52.0); Hemoglobin 14.3 g/dL (13.0-18.0); Mean Corp Hgb Conc. 35.5 g/dL (33.0-37.0); Mean Corpuscular Hgb 29.8 pg (27.0-31.0); Mean Platelet Volume 9.6 fL (7.4-10.4); Platelet Count 230 10^3/uL (130-400); Red Cell Dist. Width 12.2 % (11.5-14.5); White Blood Cell Count 10.4 10^3/uL (4.8-10.8)
[2024-06-04 05:24] LABS: Blood Urea Nitrogen 19 mg/dl (9-20); Calcium 9.3 mg/dl (8.4-10.2); Carbon Dioxide 25 mmol/L (22-30); Chloride 102 mmol/L (98-107); Estimated Creatinine Clearance > 125 ml/min; Glucose 163 mg/dl (70-99); Potassium 4.2 mmol/L (3.5-5.1); Sodium 139 mmol/L (135-145); eGFR > 60.00
[2024-06-04 06:52] VITALS: BP 100/72
[2024-06-04 06:56] LABS: Glucose - Point of Care 172 mg/dl (70-99)
[2024-06-04 06:57] VITALS: BMI 36.2
--- NOTE | 2024-06-04 07:19 | PN.DE.MGMTRT ---
Insulin Management
- -
06/04/2024 Diabetes Management Consult Follow up
Patient admitted 05/31 with chest pain, [place], chf. PMH HTN, diabetes, pericarditis as a teen. A1C on admission 7.7%, cr .7, eGFR > 60. s/p cardiac cath 06/02. Prior to admission was taking no medication for diabetes. States he took meds up until 5
years ago. He lost weight and was able to stop oral meds. He states he does have a working glucose monitor.
Patient is awake alert and oriented OOB in chair visiting with .
Patient states he could not tolerate metformin in the past.
06/03 glucose range 113 to 147 after first dose of glipizide.
Will continue Farxiga 10 mg daily and glipizide 5 mg daily (he was on glipizide before 2018). Will follow
Diabetes History
- -
Type of Diabetes: 2
Pre-Admission Diabetes Regimen
06/04/24
04:25
Creatinine 0.8
Lab Results
Hemoglobin A1c 7.7 % (4.0-5.6) H 06/01/24 07:29
Insulin Pump Settings
IP Diabetes Regimen
06/03/24 06/03/24 06/03/24
08:36 11:25 14:05
Glucose
POC Glucose 223 H 164 H 153 H
06/03/24 06/03/24 06/04/24
17:36 21:26 04:25
Glucose 163 H
POC Glucose 113 H 147 H
06/04/24
06:55
Glucose
POC Glucose 172 H
Meal type: Lunch
Meal type: Breakfast
Amount consumed: 100%
Amount consumed: 100%
Patient Education
--- NOTE | 2024-06-04 08:00 | PTCARENOTE ---
Assumed care of pt from prev nsg shift; Pt AAOx3 w/no CP or SOB. Pt w/ VS stable w/HR in the 80's & BP this AM 100/72. Pt is SR on telemetry monitoring. Pt w/ R radial site w/dressing C/D/I & no signs or symptoms of bleeding or hematoma. Pt
anticipating D/C this AM. Plan of care ongoing.
[2024-06-04] MEDS: ENTRESTO 24 MG/26 MG 1 TAB PO (09:04)
[2024-06-04] MEDS: FARXIGA 10 MG PO (09:04)
[2024-06-04] MEDS: NOVOLOG FLEXPEN-LOW RESISTANCE 1 UNITS SC (09:05)
[2024-06-04] MEDS: LOW STRENGTH ASPIRIN 81 MG PO (09:05)
[2024-06-04] MEDS: BRILINTA 90 MG PO (09:05)
[2024-06-04] MEDS: TOPROL XL 50 MG PO (09:05)
[2024-06-04] MEDS: GLUCOTROL 5 MG PO (09:05)
--- NOTE | 2024-06-04 09:14 | W.PN.HOSP.TC ---
Today's Communication/Plan
-
Discharge planning today
Assessment / Plan
Assessment / Plan
Physical exam:
General: Well Developed, Well Nourished and No Apparent Distress
HEENT: Normocephalic, Atraumatic and Moist Mucous Membranes
Respiratory: Clear to Auscultation; Negative Wheezes, Rales or Rhonchi
Cardiac: Regular Rhythm and S1/S2
GI: Soft, Nontender and Nondistended
Musculoskeletal: No Clubbing, No Cyanosis and No Edema
Neuro: Awake, Alert and Oriented
Psych: Calm
A/P:
ACS--> NSTEMI
-Plan as below:
-Dual antiplatelet therapy, beta-blockers, high intensity statins
- Cardiology consultation and ischemic evaluation.
-Cardiac cath today revealed obstructive CAD but not benefiting from intervention. Medical management indicated but if ischemic symptoms ongoing consideration for surgical revascularization.
-Discussed with cardiology who cleared him for discharge today.
Acute systolic congestive heart failure
-GDMT
Hyperlipidemia
-Checking lipoprotein a
-Starting statins
DM-II
- Patient previously on medications, but lost significant weight with lifestyle changes and was able to discontinue these.
- He admits that he has since regained a fair amount of weight and has not followed up with medical care.
- Follow glucose and cover with SSI as needed.
- Update A1C. 7.7
- Adjust meds prior to discharge for glycemic control.- patient states he hasn't tolerated metformin in past
-Diabetic BAND SHOVER consulted
Obesity due to excess calories
- Affects all aspects of care.
- Encourage healthy diet / increased exercise with goal of weight loss.
DVT Prophylaxis: Switch heparin drip to SCD and later on Lovenox if no surgery
Code Status: Full
Anticipated Discharge: Today
Subjective/Interval History
-
Date of Service: June 04, 2024
No new complaints.
Objective Data
-
Labs:
Laboratory Results
06/04/24
04:25
WBC 10.4
Hgb 14.3
Hct 40.3
Plt Count 230
Sodium 139
Potassium 4.2
Chloride 102
Carbon Dioxide 25
BUN 19
Creatinine 0.8
Glucose 163 H
Calcium 9.3
Vital Signs:
Vital Signs
Temp Pulse Resp BP Pulse Ox
98.5 F 89 18 100/72 100
06/04/24 06:57 06/04/24 07:00 06/04/24 06:57 06/04/24 06:52 06/04/24 06:57
I&O
06/03/24 06/04/24 06/05/24
06:59 06:59 06:59
Intake Total 555 / 555 240 / 240
Balance 555 / 555 240 / 240
--- NOTE | 2024-06-04 10:33 | W.PN.CD ---
Today's Communication / Plan
-
-
OK for home on current meds
Later as outpatient anticipate will add MRA (eplerenone or Aldactone) and titrate to goal doses of HF BB and ARNI
Cardiac rehab
Watch for need for diuretic (CXR with HF, LVEDP 24, pBNP 1180), but no real dyspnea and meds may make diuretic not needed currently
Excellent candidate for Ozempic/Wegovy (DM with CAD, HF, Obesity)
Impression / Plan
-
53 yo male with PMH of DM (not on meds), obesity, FH CAD presented to ED with several days of chest pain, found to have ST elevations that improved with medication. Cath performed yesterday demonstrated 100% occluded LAD and RPDA/RPL disease.
Revascularization was deferred given he was >72 hours form initial symptoms and was symptom free, suggesting completion of his infarct. TTE demonstrates LAD RWMA and reduced EF 35%.
Late presenting [place] with 100% occluded mid-LAD => med rx as outlined in prior notes
CAD, 2 V CAD as below
Ischemic cardiomyopathy
HFrEF, not needing diuretic at this time
Mixed hyperlipidemia
DM, type II
- Excellent candidate for Ozempic
Subjective: feels 'great' no symptoms with ambulation
TTE 06/02/24
Moderately reduced left ventricular systolic function.
Estimated LV ejection fraction is 35-40% Normal diastolic function.
Apical, distal septal, distal anteroseptal and distal anterior wall motion
abnormalities.
Trace mitral regurgitation.
No prior study available for comparison
Cath 06/01/2024
HEMODYNAMIC DATA
LV 109/15 (EDP 24) mmHg
AO 115/80 (mean 95) mmHg
CORONARY ANGIOGRAPHY
Dominance: right
LM: large, normal
LAD: gives rise to a large D1 and large S1 before being totally occluded in the mid-vessel. There are faint R-R and L-R collaterals supplying the mid-distal vessel.
LCx: moderate caliber vessel giving rise to a small OM1, moderate-caliber OM2, and small OM3. There is diffuse mild disease in OM1 and OM2 and diffuse moderate to severe disease in OM3.
RCA: large vessel giving rise to a medium caliber RPDA and large RPL branch. There is diffuse mild disease in the RCA. The PDA has an ostial 80% stenosis and serial moderate stenoses distally. The RPLV has a 70% stenosis in the mid-vessel and
diffuse mild disease.
Physical Exam
Vital Signs/Labs
Vital Signs
Temp Pulse Resp BP Pulse Ox
98.5 F 89 18 100/72 100
06/04/24 06:57 06/04/24 07:00 06/04/24 06:57 06/04/24 06:52 06/04/24 06:57
06/03/24 06/04/24 06/05/24
06:59 06:59 06:59
Actual Weight 122.9 kg 121 kg
06/04/24 04:25
06/04/24 04:25
APTT Cancelled 06/02/24 09:50
Magnesium 1.8 mg/dl (1.6-2.3) 06/02/24 03:15
Triglycerides 149 mg/dl (10-149) 06/01/24 07:29
LDL Cholesterol, Calc 120 mg/dl 06/01/24 07:29
VLDL Cholesterol, Calc 29 mg/dl (0-30) 06/01/24 07:29
HDL Cholesterol 49 mg/dl 06/01/24 07:29
05/31/24
23:43
Gmg-F-Xvuzzkkjkez Pept 1180
LAB Results
06/01/24 06/01/24 06/02/24
13:59 20:45 08:40
Troponin I 11.300 H* 14.900 H* D 14.900 H*
06/02/24
14:18
Troponin I 13.700 H*
Physical Exam
Constitutional: No acute distress
EENT: Anicteric
Cardiovascular: Rhythm & rate is regular and Pedal edema is absent
Respiratory: Respiratory effort normal and Lungs clear to auscul.
GI: Soft and Distention absent
Neuro/Psych: AO x 3
Data Reviewed
-
Date of Service: June 04, 2024
--- NOTE | 2024-06-04 11:02 | CM ---
Pricing on Farxiga 10mg through the patient's prescription plan is $50 for a 30 day supply and $75 for a 90 day supply. Patient qualifies for the $0 copay card. I placed it in the patient's red discharge folder. Patient will need a prior
authorization, notified Ana Mathis to call [phone].
[2024-06-04 11:53] VITALS: BP 102/73
--- NOTE | 2024-06-04 12:41 | PTCARENOTE ---
Pt's IV line & electronic device monitor D/C'd; D/C instructions discussed w/pt. Pt left w/personal belongings incl cell phone, charger tester, & laptop. Pt escorted out by staff.
== END 2024-06-04 12:43 | disposition home or self-care (01) | DRG 280 ==
LOC: IVU 02:29
PROVIDERS: Nurse Practitioner; Student in an Organized Health Care Education/Training Program; ADMITTING PHYSICIAN Hospitalist; ATTENDING PHYSICIAN Hospitalist; CONSULT PHYSICIAN Internal Medicine; EMERGENCY PHYSICIAN Emergency Medicine; FAMILY PHYSICIAN Internal Medicine
PROC: B2111ZZ Fluoroscopy of Multiple Coronary Arteries using Low Osmolar Contrast (ICD-10-PCS; 2024-06-02)
PROC: 4A023N7 Measurement of Cardiac Sampling and Pressure, Left Heart, Percutaneous Approach (ICD-10-PCS; 2024-06-02)
DX: I21.09 ST elevation (STEMI) myocardial infarction involving other coronary artery of anterior wall (principal); I50.21 Acute systolic (congestive) heart failure; I11.0 Hypertensive heart disease with heart failure; E11.9 Type 2 diabetes mellitus without complications; E66.09 Other obesity due to excess calories; Z68.39 Body mass index [BMI] 39.0-39.9, adult; I34.0 Nonrheumatic mitral (valve) insufficiency; I25.10 Atherosclerotic heart disease of native coronary artery without angina pectoris; F41.1 Generalized anxiety disorder; Z79.82 Long term (current) use of aspirin; Z86.79 Personal history of other diseases of the circulatory system; Z86.19 Personal history of other infectious and parasitic diseases; Z82.49 Family history of ischemic heart disease and other diseases of the circulatory system
CPT/HCPCS: 36430; 71045; 80048; 80053; 80061; 82962; 83036; 83695; 83735; 83880; 84484; 85025; 85027; 85730; 93005; 93306; 93458; 96365; 96366; 96367; 96375; 99291; C1894; Q9950; Q9967

== ENCOUNTER 2024-07-22 09:29 | Outpatient (RCR) | payer OTHER, SELFPAY ==
[2024-07-03 09:20] LABS: Glucose - Point of Care 116 mg/dl (70-99)
[2024-07-03 10:13] LABS: Glucose - Point of Care 154 mg/dl (70-99)
[2024-07-08 08:35] LABS: Glucose - Point of Care 168 mg/dl (70-99)
[2024-07-08 09:33] LABS: Glucose - Point of Care 116 mg/dl (70-99)
[2024-07-15 08:32] LABS: Glucose - Point of Care 132 mg/dl (70-99)
[2024-07-15 09:22] LABS: Glucose - Point of Care 108 mg/dl (70-99)
[2024-07-17 08:32] LABS: Glucose - Point of Care 144 mg/dl (70-99)
[2024-07-17 09:24] LABS: Glucose - Point of Care 109 mg/dl (70-99)
[2024-07-22 08:37] LABS: Glucose - Point of Care 102 mg/dl (70-99)
[2024-07-22 09:29] LABS: Glucose - Point of Care 141 mg/dl (70-99)
== END 2024-07-22 23:59 | disposition home or self-care (01) ==
LOC: CRHB 09:29
PROVIDERS: ATTENDING PHYSICIAN Internal Medicine
DX: I21.4 Non-ST elevation (NSTEMI) myocardial infarction (principal); I50.20 Unspecified systolic (congestive) heart failure
CPT/HCPCS: 82962; 93797; 93798

== ENCOUNTER 2024-08-26 08:39 | Outpatient (RCR) | payer OTHER, SELFPAY ==
[2024-07-29 08:37] LABS: Glucose - Point of Care 84 mg/dl (70-99)
[2024-07-29 08:53] LABS: Glucose - Point of Care 101 mg/dl (70-99)
[2024-07-29 09:41] LABS: Glucose - Point of Care 149 mg/dl (70-99)
[2024-07-31 08:36] LABS: Glucose - Point of Care 138 mg/dl (70-99)
[2024-07-31 09:26] LABS: Glucose - Point of Care 156 mg/dl (70-99)
[2024-08-05 08:34] LABS: Glucose - Point of Care 161 mg/dl (70-99)
[2024-08-05 09:27] LABS: Glucose - Point of Care 144 mg/dl (70-99)
[2024-08-07 08:36] LABS: Glucose - Point of Care 165 mg/dl (70-99)
[2024-08-07 09:29] LABS: Glucose - Point of Care 169 mg/dl (70-99)
[2024-08-12 08:30] LABS: Glucose - Point of Care 155 mg/dl (70-99)
[2024-08-12 09:38] LABS: Glucose - Point of Care 161 mg/dl (70-99)
[2024-08-14 08:32] LABS: Glucose - Point of Care 167 mg/dl (70-99)
[2024-08-14 09:29] LABS: Glucose - Point of Care 168 mg/dl (70-99)
[2024-08-21 08:22] LABS: Glucose - Point of Care 127 mg/dl (70-99)
[2024-08-21 09:19] LABS: Glucose - Point of Care 111 mg/dl (70-99)
== END 2024-08-26 23:59 | disposition home or self-care (01) ==
LOC: CRHB 08:39
PROVIDERS: ATTENDING PHYSICIAN Student in an Organized Health Care Education/Training Program; FAMILY PHYSICIAN Internal Medicine
DX: I25.10 Atherosclerotic heart disease of native coronary artery without angina pectoris (principal); I21.4 Non-ST elevation (NSTEMI) myocardial infarction (principal); I50.20 Unspecified systolic (congestive) heart failure; I50.22 Chronic systolic (congestive) heart failure; I25.2 Old myocardial infarction
CPT/HCPCS: 82962; 93797; 93798

== ENCOUNTER 2024-09-02 14:14 | Outpatient (RCR) | payer OTHER, SELFPAY | END 2024-09-02 23:59 | disposition home or self-care (01) | LOC: CRHB 14:14 | PROVIDERS: ATTENDING PHYSICIAN Student in an Organized Health Care Education/Training Program; FAMILY PHYSICIAN Internal Medicine | DX: I25.2 Old myocardial infarction (principal); I50.21 Acute systolic (congestive) heart failure | CPT/HCPCS: 93797; 93798 ==

== ENCOUNTER → 2025-05-07 08:17 | Outpatient (REF) | payer OTHER, SELFPAY | LOC: RCS 08:17 | PROVIDERS: ATTENDING PHYSICIAN Nurse Practitioner Gerontology; FAMILY PHYSICIAN Internal Medicine | DX: I00-I99 Diseases of the circulatory system (principal) | CPT/HCPCS: 93306; Q9950 ==